=== PATIENT | male | born 1940 | race Caucasian/White ===

== ENCOUNTER 2020-09-23 07:56 | Outpatient (CLI) | payer MEDICARE, SELFPAY ==
--- NOTE | 2020-09-23 | EST_ITS ---
Patient Info Name: Logan Vidal Age: 79 years : 1940 Gender: Male Ht: 62 in Wt: 205 lbs BSA: 2.06 m2 HR: 70 bpm BP: 142 / 67 mmHg Heart Rhythm: Sinus Rhythm Exam Date: 09/23/2020 9:36 AM Exam Location: [facility] Stress Patient Status: Outpatient Admit Date: 09/23/2020 Staff Ordering Physician: Johnathan, Carlos Robles MD Attending Provider: Johnathan, Carlos Robles MD Exercise Technologist: Jenny Ware CT Exercise Physician: Jose Armas MD Exam Type: CA stress tiff w NM Study Info Indications - HYPERTENSION R60.9 - Edema, unspecified I20.9 - Angina pectoris, unspecified A regadenoson stress test was performed. Summary 1. No abnormal ST/T wave changes with Lexiscan. 2. No arrhythmias were observed during the examination. 3. Please correlate with nuclear medicine images, reported separately. 4. No chest discomfort with stress test. Protocol: Lexiscan Stress ECG Details Stage: REST Duration (min): 0 min : 53 sec HR (bpm): 70 SBP (mmHg): 142 DBP (mmHg): 67 Stage: REST Duration (min): 12 min : 41 sec HR (bpm): 67 SBP (mmHg): 142 DBP (mmHg): 67 Stage: STAGE 1 Duration (min): 0 min : 59 sec HR (bpm): 80 SBP (mmHg): 147 DBP (mmHg): 88 Stage: RECOVERY Duration (min): 1 min : 0 sec HR (bpm): 83 SBP (mmHg): 147 DBP (mmHg): 88 Stage: RECOVERY Duration (min): 2 min : 0 sec HR (bpm): 81 SBP (mmHg): 147 DBP (mmHg): 88 Stage: RECOVERY Duration (min): 3 min : 0 sec HR (bpm): 80 SBP (mmHg): 153 DBP (mmHg): 81 Stage: RECOVERY Duration (min): 3 min : 5 sec HR (bpm): 81 SBP (mmHg): 153 DBP (mmHg): 81 Rest HR: 67 bpm Peak HR: 88 bpm Rest Sys BP: 142 mmHg Peak Sys BP: 153 mmHg Max Pred HR: 142 bpm % Max Pred HR: 62 % Target HR: 121 bpm Max RPP: 13,464 bpm*mmHg BP Response: Normal blood pressure response Termination Reason: Completed protocol Cardiac Symptoms: None Total Time: 1 min : 0 sec Rest Pérez BP: 67 mmHg Peak Pérez BP: 81 mmHg Total Dose: 0.4 mg Resting ECG Normal sinus rhythm, first-degree AV block, RBBB. Stress ECG No abnormal ST/T wave changes with Lexiscan. Arrhythmias No arrhythmias were observed during the examination. Report Signatures
--- NOTE | ~2020-09-23 | NM_ITS ---
EXAMINATION: NM tiff stress w perfusion DATE: 09/23/2020 15:22 INDICATION: Angina pectoris. Hypertension. Venous insufficiency. Edema. TECHNIQUE: Rest images were obtained following intravenous administration of 10 mCi Tc99m tetrofosmin (Myoview). The patient was infused intravenously with Lexiscan (Regadenoson). Then, 30.5 mCi Tc99m t etrofosmin (Myoview) was administered intravenously, and stress images were obtained. Data was recons tructed into short axis and horizontal and vertical long axis SPECT images. Gated SPECT images were a lso obtained. COMPARISON: None. FINDINGS: There is a large completely reversible mild to moderate severity perfusion defect involving the apical, surrounding the anterior, lateral, inferior and septal apical segments and extending int o the mid anteroseptal and posterior septal segments consistent with ischemia. Normal perfusion on th e rest images with no fixed perfusion defect to suggest infarct. There is normal left ventricular tarik mber size, wall motion and ejection fraction. Left ventricular ejection fraction measures 60%. IMPRESSION: 1. Large region of reversible ischemia on the stress images as detailed above involving primarily the left anterior descending coronary artery vascular distribution. 2. Left ventricular ejection fraction measuring 60%. Reviewed, dictated and finalized at location A. IMPRESSION: 1. Large region of reversible ischemia on the stress images as detailed above i nvolving primarily the left anterior descending coronary artery vascular distri bution. 2. Left ventricular ejection fraction measuring 60%.
== END 2020-09-23 07:57 | disposition home or self-care (01) ==
PROVIDERS: PCP Internal Medicine; Visit Provider Internal Medicine
DX: I20.9 Angina pectoris, unspecified (principal); I10 Essential (primary) hypertension; I87.2 Venous insufficiency (chronic) (peripheral); R60.0 Localized edema
CPT/HCPCS: 78452; 93017; A9502; J2785

== ENCOUNTER 2020-12-29 09:15 | Outpatient (RCR) | payer MEDICARE, SELFPAY ==
[2020-12-24 09:51] VITALS: BMI 33.3
[2020-12-24 09:53] VITALS: BMI 33.3
== END 2021-03-22 14:46 | disposition home or self-care (01) ==
LOC: ANHDMC 09:15
PROVIDERS: PCP Internal Medicine; Visit Provider Nurse Practitioner Adult Health
DX: E11.65 Type 2 diabetes mellitus with hyperglycemia (principal); Z71.3 Dietary counseling and surveillance; Z71.89 Other specified counseling
CPT/HCPCS: 97802; 99199; G0108

== ENCOUNTER 2021-03-25 15:00 | Outpatient (RCR) | payer MEDICARE, SELFPAY ==
[2021-01-01 14:40] VITALS: PULSE 68
== END 2021-03-25 19:30 | disposition home or self-care (01) ==
LOC: ANHCPREHAB 15:00
PROVIDERS: PCP Nurse Practitioner Adult Health; Visit Provider Internal Medicine Cardiovascular Disease
DX: Z95.1 Presence of aortocoronary bypass graft (principal)
CPT/HCPCS: 93798

== ENCOUNTER 2021-04-21 14:36 | Outpatient (RCR) | payer MEDICARE, SELFPAY | END 2021-07-05 09:36 | disposition home or self-care (01) | LOC: ANHDMC 14:36 | PROVIDERS: PCP Nurse Practitioner Adult Health; Visit Provider Nurse Practitioner Adult Health | DX: E11.9 Type 2 diabetes mellitus without complications (principal); Z71.89 Other specified counseling | CPT/HCPCS: G0109 ==

== ENCOUNTER 2022-04-20 08:41 | Outpatient (CLI) | payer MEDICARE, SELFPAY ==
[2022-04-20 18:08] LABS: Basophils Absolute Auto 0.1 K/mm3 (0.0-0.1); Basophils Percent Auto 1.2 % (0.2-1.2); Eosinophils Absolute Auto 0.3 K/mm3 (0-0.3); Eosinophils Percent Auto 5.3 % (0-4.4); Immature Granulocyte Absolute 0.04 K/mm3 (0.00-0.031); Immature Granulocyte Percent A 0.7 % (0-0.5); Lymphocytes Absolute Auto 1.51 K/mm3 (0.9-3.2); Lymphocytes Percent Auto 26.9 % (18.3-44.2); Mean Corpuscular HGB Conc 32.6 g/dl (32-36); Mean Corpuscular Hemoglobin 29.9 pg (26-34); Mean Corpuscular Volume 91.8 fl (80-100); Mean Platelet Volume 10.8 fl (7.4-10.4); Monocytes Absolute Auto 0.6 K/mm3 (0.1-0.6); Neutrophils Absolute Auto 3.1 K/mm3 (1.3-6.7); Neutrophils Percent Auto 54.9 % (45.5-73.1); Platelet Count Result 180 k/mm3 (150-375); Red Blood Count 5.01 M/mm3 (4.6-6.20); Red Cell Distribution Width 12.8 % (11.5-14.5); White Blood Count 5.6 K/mm3 (4.5-10.0)
[2022-04-20 18:33] LABS: Alanine Aminotransferase 24 U/L (6-50); Albumin Level 4.2 g/dL (3.5-5.1); Alkaline Phosphatase 100 U/L (38-126); Anion Gap 4 mmol/L (8-16); Aspartate Amino Transferase 41 U/L (17-59); Bilirubin,Total 0.8 mg/dL (0.2-1.3); Blood Urea Nitrogen 19 mg/dL (9-20); Calcium 9.2 mg/dL (8.4-10.2); Carbon Dioxide 31 mmol/L (22-30); Chloride 106 mmol/L (98-107); Cholesterol 109 mg/dL (0-200); Estimated Glomerular Filt Rate > 60; Glucose 69 mg/dL (65-110); HDL Direct 35 mg/dL; Potassium 4.9 mmol/L (3.4-5.0); Sodium 141 mmol/L (137-145); Triglycerides 60 mg/dL (<150)
[2022-04-20 18:51] LABS: LDL Cholesterol Direct 58 mg/dL
[2022-04-20 18:52] LABS: Prostate Specific Antigen 1.3 ng/mL (< OR = 4.0)
[2022-04-20 18:55] LABS: Vitamin D 25 Hydroxy 82.8 ng/mL
[2022-04-20 19:21] LABS: Hemoglobin A1C 7.1 % (<5.7)
== END 2022-04-20 08:42 | disposition home or self-care (01) ==
LOC: ANHGOSHLAB 08:42
PROVIDERS: PCP Family Medicine; Visit Provider Family Medicine
DX: E11.9 Type 2 diabetes mellitus without complications (principal); E78.5 Hyperlipidemia, unspecified; E55.9 Vitamin D deficiency, unspecified; E53.8 Deficiency of other specified B group vitamins; Z12.5 Encounter for screening for malignant neoplasm of prostate; I25.10 Atherosclerotic heart disease of native coronary artery without angina pectoris; I87.2 Venous insufficiency (chronic) (peripheral); Z13.29 Encounter for screening for other suspected endocrine disorder
CPT/HCPCS: 36415; 80053; 80061; 82306; 82607; 83036; 84153; 84443; 85025; G0103

== ENCOUNTER 2022-10-25 09:43 | Outpatient (CLI) | payer MEDICARE, SELFPAY ==
[2022-10-25 13:01] LABS: Basophils Absolute Auto 0.1 K/mm3 (0.0-0.1); Eosinophils Absolute Auto 0.2 K/mm3 (0-0.3); Eosinophils Percent Auto 4.1 % (0-4.4); Hematocrit 44.8 % (42.0-52.0); Hemoglobin 14.4 g/dL (14.0-18.0); Immature Granulocyte Absolute 0.02 K/mm3 (0.00-0.031); Immature Granulocyte Percent A 0.3 % (0-0.5); Lymphocytes Absolute Auto 1.49 K/mm3 (0.9-3.2); Lymphocytes Percent Auto 25.4 % (18.3-44.2); Mean Corpuscular HGB Conc 32.1 g/dl (32-36); Mean Corpuscular Hemoglobin 30.3 pg (26-34); Mean Corpuscular Volume 94.3 fl (80-100); Mean Platelet Volume 10.9 fl (7.4-10.4); Monocytes Absolute Auto 0.6 K/mm3 (0.1-0.6); Monocytes Percent Auto 10.6 % (2.6-8.5); Neutrophils Absolute Auto 3.4 K/mm3 (1.3-6.7); Neutrophils Percent Auto 58.6 % (45.5-73.1); Platelet Count Result 171 k/mm3 (150-375); Red Blood Count 4.75 M/mm3 (4.6-6.20); Red Cell Distribution Width 13.1 % (11.5-14.5); White Blood Count 5.9 K/mm3 (4.5-10.0)
[2022-10-25 13:21] LABS: Alanine Aminotransferase 22 U/L (6-50); Albumin Level 3.8 g/dL (3.5-5.1); Alkaline Phosphatase 88 U/L (38-126); Anion Gap 4 mmol/L (8-16); Aspartate Amino Transferase 47 U/L (17-59); Bilirubin,Total 1.1 mg/dL (0.2-1.3); Blood Urea Nitrogen 19 mg/dL (9-20); Calcium 9.2 mg/dL (8.4-10.2); Carbon Dioxide 29 mmol/L (22-30); Chloride 103 mmol/L (98-107); Estimated Glomerular Filt Rate > 60; Glucose 160 mg/dL (65-110); Potassium 4.2 mmol/L (3.4-5.0); Sodium 136 mmol/L (137-145)
[2022-10-25 13:32] LABS: Hemoglobin A1C 7.4 % (<5.7)
[2022-10-25 13:34] LABS: Vitamin D 25 Hydroxy 75.6 ng/mL
== END 2022-10-25 09:44 | disposition home or self-care (01) ==
PROVIDERS: PCP Family Medicine; Visit Provider Family Medicine
DX: E55.9 Vitamin D deficiency, unspecified (principal); I10 Essential (primary) hypertension; E11.9 Type 2 diabetes mellitus without complications; R23.3 Spontaneous ecchymoses
CPT/HCPCS: 36415; 80053; 82306; 83036; 85025

== ENCOUNTER 2023-05-18 11:24 | Outpatient (CLI) | payer MEDICARE, SELFPAY ==
[2023-05-18 13:52] LABS: Prostate Specific Antigen 1.2 ng/mL (< OR = 4.0)
[2023-05-18 14:12] LABS: Vitamin D 25 Hydroxy 66.5 ng/mL
[2023-05-18 14:23] LABS: MALB Creatinine Ratio < 30.0 mg/g (0-30); Microalbumin Urine Random < 6.0 mg/L (0-16.7)
[2023-05-18 19:49] LABS: Hemoglobin A1C 7.1 % (<5.7)
== END 2023-05-18 11:25 | disposition home or self-care (01) ==
LOC: ANHGOSHLAB 11:25
PROVIDERS: PCP Family Medicine; Visit Provider Family Medicine
DX: E11.9 Type 2 diabetes mellitus without complications (principal); R41.89 Other symptoms and signs involving cognitive functions and awareness; Z13.29 Encounter for screening for other suspected endocrine disorder; Z12.5 Encounter for screening for malignant neoplasm of prostate; E55.9 Vitamin D deficiency, unspecified; E53.8 Deficiency of other specified B group vitamins
CPT/HCPCS: 36415; 82043; 82306; 82607; 83036; 84153; 84443; G0103

== ENCOUNTER 2023-11-23 10:18 | Outpatient (CLI) | payer MEDICARE, SELFPAY ==
[2023-11-23 14:55] LABS: Alanine Aminotransferase 20 U/L (6-50); Alkaline Phosphatase 91 U/L (38-126); Anion Gap 5 mmol/L (4-12); Aspartate Amino Transferase 51 U/L (17-59); Blood Urea Nitrogen 16 mg/dL (9-20); Calcium 9.3 mg/dL (8.4-10.2); Carbon Dioxide 32 mmol/L (22-30); Chloride 100 mmol/L (98-107); Estimated Glomerular Filt Rate > 60; Glucose 146 mg/dL (65-110); Potassium 4.5 mmol/L (3.4-5.0); Sodium 137 mmol/L (137-145)
[2023-11-23 14:57] LABS: Hemoglobin A1C 7.3 % (<5.7)
== END 2023-11-23 10:19 | disposition home or self-care (01) ==
LOC: ANHGOSHLAB 10:19
PROVIDERS: PCP Family Medicine; Visit Provider Family Medicine
DX: E11.9 Type 2 diabetes mellitus without complications (principal)
CPT/HCPCS: 36415; 80053; 83036

== ENCOUNTER 2023-11-23 10:55 | Outpatient (CLI) | payer MEDICARE, SELFPAY ==
--- NOTE | ~2023-11-23 | XR_ITS ---
Right Shoulder Technique: AP and axillary views were obtained. Clinical History: Pain Findings: No fracture or dislocation is seen. Osseous alignment is anatomic. The glenohumeral and acr omioclavicular joint spaces are preserved. Soft tissues are unremarkable. Impression: Unremarkable right shoulder radiographs. Reviewed, dictated and finalized at [facility]. Impression: Unremarkable right shoulder radiographs.
== END 2023-11-23 10:56 | disposition home or self-care (01) ==
PROVIDERS: PCP Family Medicine; Visit Provider Family Medicine
DX: M25.511 Pain in right shoulder (principal)
CPT/HCPCS: 73030

== ENCOUNTER 2023-12-22 11:45 | Outpatient (CLI) | payer MEDICARE, SELFPAY ==
--- NOTE | ~2023-12-22 | CT_ITS ---
CT head without contrast Indication: Dizziness and giddiness Technique: Serial scans were obtained through the brain without the administration of contrast. Dose reduction technique was used on this scan by utilizing automated exposure control and iterative recon struction technique. The dose-length product (DLP) was 599.57 mGy-cm. Findings: There is no evidence of intracranial hemorrhage, mass lesion, or acute infarct. The ventri cles and subarachnoid spaces are dilated, consistent with mild atrophy. Low attenuation regions are seen within the periventricular white matter bilaterally, likely representing changes from chronic mi crovascular ischemic disease. There is no evidence of edema, mass effect or midline shift. The visu alized paranasal sinuses and mastoid air cells are clear. Impression: No intracranial hemorrhage, mass, or acute infarct. Atrophy and chronic white matter changes, as above. Reviewed, dictated and finalized at location . UTING CONSULTANT Impression: No intracranial hemorrhage, mass, or acute infarct. Atrophy and chronic white matter changes, as above.
== END 2023-12-22 11:46 | disposition home or self-care (01) ==
PROVIDERS: PCP Internal Medicine Cardiovascular Disease; Visit Provider Internal Medicine Cardiovascular Disease
DX: R42 Dizziness and giddiness (principal)
CPT/HCPCS: 70450

== ENCOUNTER 2024-01-16 09:00 | Outpatient (RCR) | payer MEDICARE, SELFPAY ==
--- NOTE | 2023-12-19 13:30 | OPREHPOC ---
Outpatient Therapy Plan of Care This is a Multidisciplinary Plan of Care that may contain components documented by all disciplines (PT, OT, and ST.) PT Problem 1 PT Problem #1 Knowledge Deficit PT Goal 1 Goal / Goal Update [place] with HEP Target Visit 4 PT Problem 2 PT Problem #2 Impaired Range of Motion PT Goal 1 Goal / Goal Update Achieve 160 degrees of right shoulder flexion for improved functional reach Target Visit 8 PT Goal 2 Goal / Goal Update Improve R shoulder external rotation to 80 degrees to improve functional reach and dressing Target Visit 8 PT Problem 3 PT Problem #3 Impaired Range of Motion PT Goal 1 Goal / Goal Update Improve R shoulder internal rotation to the functional level of L3 without pain for improve functional reaching Target Visit 8 PT Goal 2 Goal / Goal Update Improve yuni periscapular strength to 4/5 to improve scapular stability with ADLs Target Visit 8
--- NOTE | 2023-12-19 13:31 | PTOPEVAL1 ---
Assessment and note entered by Danny Zapata, PT Evaluation Information Assessment Status Evaluation ICD-10 Condition Codes (PT) M25.511 Onset November 2023 Subjective Information Reports that about 3 weeks ago he was reaching behind his car seat and felt intense pain when bringing his arm back. Right now, most of his pain comes from reaching behind his back. Denies pain at rest or pain radiating down his hand. No problem with sleeping at this time. He is right handed. Reports that he has= been warming his shoulder in the shower and it helps. Reported Pain Level Pain Score 0: Self Report Assessment PT Clinical Summary Patient presents with signs and symptoms consistent with shoulder impingement and possible biceps tendonitis. Patient has limited ROM at this time but strength is notably sufficient. Patient will benefit from skilled therapy to address these deficits to improve functional use of dominant shoulder. Plan of Care Interventions Electrical Stimulation,Manual Therapy,Neuro Re- education,Therapeutic Activities,Therapeutic Exercise PT Services Indicated Yes Treatment Frequency and 2x/week for 8 visits Duration These treatments will address the objective and functional deficits as defined above. The patient will be advanced safely and appropriately in order for the patient to progress towards his/her prior level of function. Additional exercises will be introduced and as well as a comprehensive home exercise program upon discharge, if needed, ?to ensure carryover of functional gains achieved in the clinic. This treatment plan has been reviewed and agreement upon by the patient.
--- NOTE | 2024-01-16 09:53 | OPREHPOC ---
Outpatient Therapy Plan of Care This is a Multidisciplinary Plan of Care that may contain components documented by all disciplines (PT, OT, and ST.) PT Problem 1 PT Problem #1 Knowledge Deficit PT Goal 1 Goal / Goal Update [place] with HEP Target Visit 4 Progress Met PT Problem 2 PT Problem #2 Impaired Range of Motion PT Goal 1 Goal / Goal Update Achieve 160 degrees of right shoulder flexion for improved functional reach Target Visit 8 Progress Met PT Goal 2 Goal / Goal Update Improve R shoulder external rotation to 80 degrees to improve functional reach and dressing Target Visit 8 Progress Met PT Problem 3 PT Problem #3 Impaired Range of Motion PT Goal 1 Goal / Goal Update Improve R shoulder internal rotation to the functional level of L3 without pain for improve functional reaching Target Visit 8 Progress Met PT Goal 2 Goal / Goal Update Improve yuni periscapular strength to 4/5 to improve scapular stability with ADLs Target Visit 8 Progress Met
--- NOTE | 2024-01-16 09:53 | PTOPDC ---
Assessment and note entered by Danny Zapata, PT Evaluation Information Assessment Status Discharge ICD-10 Condition Codes (PT) M25.511 Onset November 2023 Subjective Information Patient reports that overall he has seen a lot of improvement. Pain not limiting motion at this time and feels he is doing well. no concerns for discharge at this time and feels comfortable with HEP. Reported Pain Level Pain Score 1: Self Report Assessment PT Clinical Summary Patient has met all goals and is suitable for discharge to [facility] at this time. ROM has exceeded expectations and no strength deficits noted. Plan of Care PT Services Indicated Yes
== END 2024-01-16 10:58 | disposition home or self-care (01) ==
LOC: ANHGOSHPT 09:00
PROVIDERS: PCP Family Medicine; Visit Provider Family Medicine
DX: M25.511 Pain in right shoulder (principal)
CPT/HCPCS: 97014; 97110; 97140; 97161; G0283

== ENCOUNTER 2024-12-02 10:45 | Outpatient (CLI) | payer MEDICARE, SELFPAY ==
[2024-12-02 13:16] LABS: Alanine Aminotransferase 17 U/L (6-50); Albumin Level 4.1 g/dL (3.5-5.1); Alkaline Phosphatase 82 U/L (38-126); Anion Gap 5 mmol/L (4-12); Aspartate Amino Transferase 36 U/L (17-59); Bilirubin,Total 0.8 mg/dL (0.2-1.3); Blood Urea Nitrogen 16 mg/dL (9-20); Calcium 9.3 mg/dL (8.4-10.2); Carbon Dioxide 29 mmol/L (22-30); Chloride 105 mmol/L (98-107); Estimated Glomerular Filt Rate > 60; Glucose 129 mg/dL (65-110); Potassium 4.4 mmol/L (3.4-5.0); Sodium 139 mmol/L (137-145); Total Protein 6.8 g/dL (6.3-8.2)
[2024-12-02 14:15] LABS: Hemoglobin A1C 6.5 % (<5.7)
== END 2024-12-02 10:46 | disposition home or self-care (01) ==
LOC: ANHGOSHLAB 10:45
PROVIDERS: PCP Family Medicine; Visit Provider Family Medicine
DX: E11.9 Type 2 diabetes mellitus without complications (principal); I10 Essential (primary) hypertension
CPT/HCPCS: 36415; 80053; 83036

== ENCOUNTER 2024-12-17 13:14 | Outpatient (CLI) | payer MEDICARE, SELFPAY ==
--- NOTE | ~2024-12-17 | US_ITS ---
EXAMINATION:US_VDOPREFBI_US INDICATION:Localized edema TECHNIQUE: Multiple grayscale, color flow and Doppler images of the right and left lower extremity deep venous systems were obtained and reviewed. COMPARISON:No prior studies for comparison. FINDINGS: The common femoral, superficial femoral and popliteal veins demonstrate normal respiratory variation, augmentation and compressibility. Color flow is also seen within the posterior tibial, peroneal, greater saphenous and profunda veins. There is venous reflux in the left greater and lesser s aphenous veins. No evidence for reflux in the right lower extremity veins. IMPRESSION: 1: No lower extremity deep venous thrombosis. 2: Venous reflux in the left greater and lesser saphenous veins. Reviewed, dictated and finalized at location O. CE WORKER
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
== END 2024-12-17 13:15 | disposition home or self-care (01) ==
PROVIDERS: PCP Family Medicine; Visit Provider Family Medicine
DX: R60.0 Localized edema (principal); I87.2 Venous insufficiency (chronic) (peripheral)
CPT/HCPCS: 93970

== ENCOUNTER 2024-12-18 10:27 | Outpatient (CLI) | payer MEDICARE, SELFPAY ==
--- NOTE | ~2024-12-18 | US_ITS ---
US art doppler w press LE BI INDICATION: Peripheral vascular disease TECHNIQUE: Segmental pressures and plethysmographic and Doppler waveforms of the brachial and lower extremity arteries were obtained. COMPARISON: None. FINDINGS: Right and left brachial artery pressures of 128 mm Hg and 134 mm Hg, respectively, are concordant (normal difference <= 30 mmHg). The right ankle-brachial index (MADI) is 1.25 (normal >= 0.9-1.0). The right great toe-brachial index (TBI) is 0.44 (normal >= 0.60). The left MADI is 1.14. The left TBI is 0.47. IMPRESSION: 1. Normal ankle-brachial indices. 2: Diminished bilateral toe brachial indices consistent with peripheral arterial disease. Reviewed, dictated and finalized at location O. ESTATE PARALEGAL IMPRESSION: 1. Normal ankle-brachial indices. 2: Diminished bilateral toe brachial indices consistent with peripheral arteri al disease.
--- OUTSIDE RECORDS SUMMARY | 2024-12-19 10:12 | XMS_ITS | Clinical Summary ---
Author Organization [facility] [place] [address] [facility] [address] Address [address] [place] [address] Care Team Providers Care Pet Sitter Name Role Phone Natalie Erickson NP Primary Care Provider [phone] Robin Zapata MD Unavailable [phone] Benson Lorenzo MD Unavailable Allergies Active Allergy [...] Diagnosed Date Coronary artery disease invo lving in[place] heart without angina pectoris 11/03/2020 Overview (11/03/2020): Added automatically from request for surgery [id number] Surgical History Surgery Date Site/Laterality Comments TOTAL [...] on file Legal Sex Male 5:24 PM COMMUNITY RELATIONS ASSISTANT Gender Identity Male 11/23/2020 8:07 AM CDT Sexual Orientation Not on file Last Filed Vital Signs Vital Sign Reading Time Taken Comments Blood Pressure 130/72 03/23/2021 11:33 AM COMMUNITY RELATIONS ASSISTANT Pulse 86 03/23/2021 11:33 AM COMMUNITY RELATIONS ASSISTANT Temperature 36.6 C (97.9 F) 12/11/2020 10:59 AM CDT Respiratory Rate 14 03/23/2021 11:33 AM COMMUNITY RELATIONS ASSISTANT Oxygen Saturation 98% 03/23/2021 11:33 AM COMMUNITY RELATIONS ASSISTANT Inhaled Oxygen Concentration - - Weight 88 kg (194 lb) 03/23/2021 11:33 AM COMMUNITY RELATIONS ASSISTANT Height 160 cm (5' 3) 03/23/2021 11:33 AM COMMUNITY RELATIONS ASSISTANT Body Mass Index 34.37 03/23/2021 11:33 AM COMMUNITY RELATIONS ASSISTANT Plan of Treatment Health Maintenance Due Date Last Done Comments Depression Screening 1940 DTaP/Tdap/Td Vaccine (1 - Tdap) 1951 Hepatitis B Screening 10/17/1959 Pneumococcal vaccine 65+ (1 of 1 - PCV) 10/17/1991 Zoster Vaccine (1 of 2) 10/17/1991 Well Visit 65+ 2006 Fall Risk Assessment 11/16/2021 11/16/2020 Influenza Vaccine (#1) 2024 12/15/2020 Medical Devices Implanted Type Area Hand Umbrella Tipper Device Identifier Shelf Expiration Date Model / Serial / Lot Total Knee Bilateral: Knee Cardiac Stent Heart Insurance [facility] MDCR HMO REF Advance Directives For more information, please contact: [phone] * Full Code (Latest Code Status on File) Date Activated Date Inactivated Comments 11/11/2020 4:07 PM 11/16/2020 11:08 PM Care Teams Pet Sitter Relationship Specialty Start Date End Date Natalie Erickson NP [facility] [place] [address] PCP - General Nurse Practitioner 11/03/20 Robin Zapata MD [address] [place] [address] Surgeon Cardiothoracic Surgery 11/16/20 [place] [id number] [address] Consulting Physician Cardiology 11/16/20
== END 2024-12-18 10:28 | disposition home or self-care (01) ==
PROVIDERS: PCP Family Medicine; Visit Provider Family Medicine
DX: R09.89 Other specified symptoms and signs involving the circulatory and respiratory systems (principal)
CPT/HCPCS: 93923